=== PATIENT | female | born 1985 | race Caucasian/White ===

== ENCOUNTER → 2025-01-07 17:33 | Outpatient (REF) | payer BC, SELFPAY | LOC: RAD 17:33 | PROVIDERS: ATTENDING PHYSICIAN Student in an Organized Health Care Education/Training Program; FAMILY PHYSICIAN Family Medicine | DX: R10.84 Generalized abdominal pain (principal); R14.0 Abdominal distension (gaseous) | CPT/HCPCS: 74018 ==